=== PATIENT | female | born 1965 | race Hispanic/Latino ===

== ENCOUNTER 2016-03-03 14:10 | Outpatient (CLI) | payer MEDICARE ==
--- NOTE | 2016-03-03 16:41 | Mammography Report ---
BILATERAL DIGITAL SCREENING MAMMOGRAM : 03/03/16 14:10:00 CLINICAL: Routine screening. COMPARISON:02/26/15 FINDINGS: The breasts are almost entirely fatty.No mass, architectural distortion or suspicious calcifications. IMPRESSION: No mammographic evidence of malignancy. BI-RADS CATEGORY: 2 -- Benign RECOMMENDATION: Routine mammographic screening in one year. COMMENT: Patient follow-up letters are generated by our [employer] application.
== END 2016-03-03 14:11 | disposition home or self-care (01) ==
LOC: SPVWC 14:10
PROVIDERS: ATTEND Obstetrics & Gynecology
DX: Z12.31 Encounter for screening mammogram for malignant neoplasm of breast (principal)
CPT/HCPCS: 77067; G0202